=== PATIENT | male | born 1960 | race Hispanic/Latino ===

== ENCOUNTER 2018-08-24 09:10 | Day surgery (SDC) | payer OTHER ==
[2018-08-23 15:20] VITALS: BP 164/114
[2018-08-23 15:44] LABS: BASOPHILS % (AUTO) 0.8 % (0.0-5.0); EOSINOPHILS % (AUTO) 1.5 % (0.0-8.0); HEMATOCRIT 43.5 % (42-54); LYMPHOCYTES % (AUTO) 25.3 % (21.0-51.0); MEAN CORPUSCULAR HEMOGLOBIN 28.8 pg (27.0-33.0); MEAN CORPUSCULAR HGB CONC 34.2 g/dL (32.0-36.0); MEAN CORPUSCULAR VOLUME 84.1 fL (79-99); MONOCYTES % (AUTO) 5.5 % (3.0-13.0); NEUTROPHILS % (AUTO) 66.9 % (40.0-77.0); PLATELET COUNT (AUTO) 246 K/uL (130-400); RED BLOOD CELL COUNT(AUTO) 5.17 MIL/uL (4.50-6.20); WHITE BLOOD COUNT (AUTO) 6.6 K/uL (4.8-10.8)
[2018-08-23 16:02] LABS: CREATININE 0.9 mg/dL (0.5-1.5); CRP QUANTITATIVE 25.3 mg/L (0.00-9.0); POTASSIUM 3.9 mmol/L (3.5-5.1)
[2018-08-23 16:25] VITALS: BP 155/85
--- NOTE | 2018-08-23 16:25 | NUR ---
BP PT INSTRUCTED TO MONITOR BP AT HOME. IF ELEVATED AND/OR EXPERIENCING CARDIAC SYMPTOMS LIKE CHEST PAIN, SHORTNESS OF BREATH, LIGHTHEADEDNESS, BLURRY VISION, HEADACHES AND THE LIKE, GO TO EMERGENCY ROOM. VERBALIZED UNDERSTANDING. PT ASYMPTOMATIC OF THE PRESENT.
[2018-08-23 16:49] LABS: ERYTHROCYTE SEDIMENTATION RATE 22 MM/HR (0-20)
--- NOTE | 2018-08-23 18:18 | NUR ---
ABNORMAL LABS ABNORMAL LABS REPORTED TO DR. REBOLLAR CRP 25.30, ESR 22. NO FURTHER ORDERS GIVEN. ALSO NOTIFIED DR. REBOLLAR THAT PT TOOK HIS ASA 2 DAYS AGO. MAY PROCEED WITH PLANNED PROCEDURE.
[~2018-08-24] VITALS: Ht 185.4 cm; Wt 108.7 kg
[2018-08-24] VITALS (15 sets, daily range): BP systolic 81–169; BP diastolic 54–109
[~2018-08-24 09:10] MED LIST: AEC81 PO; ALEVE PO
[2018-08-24] MEDS ORDERED: CEFAZOLIN 3GM /D5W 100ML 100 ML IV PRN (10:00)
[2018-08-24] MEDS ORDERED: LACTATED RINGERS 1000ML 1,000 ML IV ONE (10:44)
[2018-08-24] MEDS ORDERED: VANCOMYCIN 1GM+NS 250ML 250 ML IV ONE (10:44)
[2018-08-24] MEDS ORDERED: LIDOCAINE PF 2% 5ML ABBOJECT ONE (11:27)
[2018-08-24] MEDS ORDERED: SUCCINYLCHOLINE 200MG/10ML SYR ONE ×2 (11:27→11:30)
[2018-08-24] MEDS ORDERED: ONDANSETRON HCL 4 MG/2 ML VIAL ONE ×2 (11:28→17:22)
[2018-08-24] MEDS ORDERED: MIDAZOLAM HCL 1 MG/ML 2ML VIAL ONE (11:28)
[2018-08-24] MEDS ORDERED: PROPOFOL 10 MG/ML 20ML VIAL IV ONE (11:28)
[2018-08-24] MEDS ORDERED: NEOSTIGMINE 5MG/5ML SYR IV ONE (11:28)
[2018-08-24] MEDS ORDERED: DEXAMETHASONE SOD PHOSPHATE 10MG/ML 1ML VIAL ONE (11:28)
[2018-08-24] MEDS ORDERED: GLYCOPYRROLATE 1 MG/5 ML SYRINGE ONE (11:28)
[2018-08-24] MEDS ORDERED: FENTANYL CITRATE PF 50 MCG/1 ML 2ML VIAL ONE ×3 (11:29→15:13)
[2018-08-24] MEDS ORDERED: ROCURONIUM 10MG/1ML SYR 10 MG/ML ML ONE (11:29)
[2018-08-24] MEDS ORDERED: VANCOMYCIN HCL 1 GM VIAL ONE ×2 (11:37→12:22)
--- NOTE | 2018-08-24 11:45 | NUR ---
Vancomycin stopped per Dr Lisa ,due to needs cultures prior to Vancomycin Addendum: 08/24/18 at 1457 by CINTIA CONWAY RN RN Amended: Links added.
[2018-08-24] MEDS ORDERED: LISI-613 PO (14:50)
[2018-08-24] MEDS ORDERED: GLUC-172 PO (14:51)
[2018-08-24] MEDS ORDERED: MEPERIDINE-PF 25 MG/ML SYG ONE ×2 (15:30→15:40)
[2018-08-24] MEDS ORDERED: TYL3 PO (15:40)
[2018-08-24] MEDS ORDERED: AMPI500C12 PO (15:40)
[2018-08-24] MEDS ORDERED: MORPHINE SULFATE 2 MG/ML 1ML SYG ONE (15:48)
[2018-08-24] MEDS ORDERED: KETOROLAC TROMETHAMINE 30MG/ML ONE (15:59)
[2018-08-24] MEDS ORDERED: ACETAMINOPHEN-CODEINE 300/30MG TAB ONE (16:37)
[2018-08-24 17:10] LABS: APPEARANCE BODY FLUID BLOODY (CLEAR); COLOR,BODY FLUID RED (LT YELLOW); SPECIMENTYPE,BODY FLUID ASPIRATE; TOTAL VOLUME,BODY FLUID 1.5 mL
[2018-08-24 17:11] LABS: BODY FLUID WBC 702 /cu. mm.
[2018-08-24 17:12] LABS: BODY FLUID RBC 30525 /cu. mm.
[2018-08-24] MEDS ORDERED: ACETAMINOPHEN-CODEINE 300/30MG TAB PO ONE (17:45)
[2018-08-24 17:47] LABS: BF LYMPHOCYTE 9 %
== END 2018-08-24 17:53 | disposition home or self-care (01) ==
LOC: DAH 09:10 → EDSEX 15:30 → DAH 17:53
PROVIDERS: ATTEND Orthopaedic Surgery
DX: M17.12 Unilateral primary osteoarthritis, left knee (principal); L40.9 Psoriasis, unspecified; I10 Essential (primary) hypertension; Z79.899 Other long term (current) drug therapy; Z98.890 Other specified postprocedural states; Z68.31 Body mass index [BMI] 31.0-31.9, adult
CPT/HCPCS: 29877; 36415; 80048; 85025; 85651; 86140; 87070; 87205; 89051; A4606; A4649 ×2; A4930; A6223; J0330 ×2; J1100; J1885; J2001; J2175 ×2; J2250; J2405 ×2; J2704; J2710; J3010 ×3; J3370 ×3; J3490; J7120

== ENCOUNTER 2018-11-23 10:30 | Inpatient (IN) | payer OTHER ==
[~2018-11-23] VITALS: Ht 185.4 cm; Wt 108.8 kg
[~2018-11-23 10:30] MED LIST changes: +AMPI500C12 PO; +GLUC-172 PO; +LISI-613 PO; +TYL3 PO
[2018-11-26] VITALS (28 sets, daily range): BP systolic 124–188; BP diastolic 59–114
[2018-11-26 11:30] LABS: APPEARANCE,URINE Clear (CLEAR); BILIRUBIN,URINE Negative (NEGATIVE); COLOR,URINE Dark Yellow (YELLOW); GLUCOSE, URINE (UA) Negative (NEGATIVE); KETONES,URINE Trace mg/dL (NEGATIVE); LEUKOCYTE ESTERASE ,URINE Trace (NEGATIVE); NITRATE,URINE Negative (NEGATIVE); OCCULT BLOOD,URINE Small (NEGATIVE); PH,URINE 6.5 (5.0-8.0); PROTEIN,URINE Trace mg/dL (NEGATIVE)
[2018-11-26 11:41] LABS: INR 0.9 (0.85-1.15); PROTHROMBIN TIME 9.5 SEC (9.6-11.6)
[2018-11-26 11:46] LABS: BACTERIA,URINE Few /HPF (None Seen); SQUAMOUS EPITHELIAL CELL,UR None Seen /HPF (0-2); WBC,URINE 0-1 /HPF (0-1)
[2018-11-26] MEDS ORDERED: CEFAZOLIN SODIUM 1 GM VIAL ONE ×2 (11:54→14:24)
[2018-11-26] MEDS ORDERED: TRANEXAMIC ACID 1000MG/10ML IV ONE ×2 (11:54→16:29)
[2018-11-26] MEDS: CEFAZOLIN SODIUM 1 GM VIAL IVP SCH ×3 (12:30→20:28)
[2018-11-26] MEDS ORDERED: LACTATED RINGERS 1000ML 1,000 ML IV ONE (12:36)
--- NOTE | 2018-11-26 12:45 | NUR ---
CONSULT: NOTIFIED [facility] OPERATOR OF PATIENTS IRREGUAR HEART RATE OF 46 - 52. NO CARDIAC CLEARANCE IN CHART. ORDERS GIVEN.
--- NOTE | 2018-11-26 12:52 | NUR ---
POTENTIAL FOR INFECTION: SHAVED LEFT KNEE / LEG PER ELIZABETH CORTES, FOLLOWED BY WIPING WITH YUE: 2% CHLORHEXIDINE GLUCONATE CLOTH PATIENTS PRE-OP SKIN PREP.
[2018-11-26] MEDS ORDERED: LIDOCAINE PF 2% 5ML ABBOJECT ONE (13:07)
[2018-11-26] MEDS ORDERED: MIDAZOLAM HCL 1 MG/ML 2ML VIAL ONE (13:08)
[2018-11-26] MEDS ORDERED: ROCURONIUM 10MG/1ML SYR 10 MG/ML ML ONE ×2 (13:08→14:14)
[2018-11-26] MEDS ORDERED: PROPOFOL 10 MG/ML 20ML VIAL IV ONE (13:08)
[2018-11-26] MEDS ORDERED: FENTANYL CITRATE PF 50 MCG/1 ML 2ML VIAL ONE ×3 (13:17→14:36)
[2018-11-26] MEDS ORDERED: VANCOMYCIN HCL 1 GM VIAL ONE (14:24)
[2018-11-26] MEDS ORDERED: CEFAZOLIN SODIUM 1 GM VIAL IRRIG ONE (14:30)
[2018-11-26] MEDS ORDERED: ONDANSETRON HCL 4 MG/2 ML VIAL ONE ×2 (14:55→17:07)
[2018-11-26] MEDS ORDERED: DEXAMETHASONE SOD PHOSPHATE 10MG/ML 1ML VIAL ONE (14:55)
[2018-11-26] MEDS ORDERED: POTASSIUM CHLORIDE 20 MEQ ERTAB PO PRN (15:45)
[2018-11-26] MEDS ORDERED: TRAMADOL HCL 50 MG TABLET PO PRN (15:45)
[2018-11-26] MEDS: ACETAMINOPHEN EXTRA STRENGTH 500 MG TABLET PO SCH ×2 (15:45→23:35)
[2018-11-26] MEDS ORDERED: FERROUS FUMARATE 324 MG TABLET PO PRN (15:45)
[2018-11-26] MEDS ORDERED: DiphenhydrAMINE HCL 50 MG/ML VIAL IVP PRN (15:45)
[2018-11-26] MEDS ORDERED: KETOROLAC TROMETHAMINE 15MG/ML IV PRN (15:45)
[2018-11-26] MEDS ORDERED: ONDANSETRON HCL 4 MG/2 ML VIAL IVP PRN (15:45)
[2018-11-26] MEDS ORDERED: POTASSIUM CHLORIDE 10% ELIXIR 20 MEQ/15 ML UDCUP PO PRN (15:45)
[2018-11-26] MEDS ORDERED: OXYCODONE HCL 5 MG TAB PO PRN (15:45)
[2018-11-26] MEDS ORDERED: TEMAZEPAM 15 MG CAPSULE PO PRN (15:45)
[2018-11-26] MEDS ORDERED: POTASSIUM CHLORIDE 20MEQ/100ML 100 ML IV PRN (15:45)
[2018-11-26] MEDS ORDERED: LIDOCAINE HCL-MPF 1% 2ML VIAL IVP PRN (15:45)
[2018-11-26] MEDS ORDERED: ROPIVACAINE 0.5% 5MG/ML 30ML IJ ONE (15:51)
[2018-11-26] MEDS ORDERED: GLYCOPYRROLATE 1 MG/5 ML SYRINGE ONE (16:11)
[2018-11-26] MEDS ORDERED: NEOSTIGMINE 5MG/5ML SYR IV ONE (16:11)
[2018-11-26] MEDS ORDERED: MEPERIDINE-PF 25 MG/ML SYG ONE (16:33)
[2018-11-26] MEDS: MEPERIDINE-PF 25 MG/ML SYG ONE ×2 (16:49→17:10)
[2018-11-26] MEDS: SODIUM CHLORIDE 0.9% 1000ML 1,000 ML IV SCH (18:08)
[2018-11-26] MEDS: ASPIRIN 325 MG TABLET PO SCH (18:09)
[2018-11-26] MEDS: FAMOTIDINE 20MG TAB 20 MG TAB PO SCH (20:28)
[2018-11-26] MEDS: CELECOXIB 200 MG CAP PO SCH (20:28)
[2018-11-26] MEDS: PREGABALIN 25 MG CAP PO SCH (20:28)
[2018-11-27] MEDS: SODIUM CHLORIDE 0.9% 1000ML 1,000 ML IV SCH ×2 (01:44→08:58)
[2018-11-27 03:30] VITALS: BP 133/69
[2018-11-27 04:32] LABS: HEMATOCRIT 40.1 % (42-54); MEAN CORPUSCULAR HEMOGLOBIN 28.3 pg (27.0-33.0); MEAN CORPUSCULAR HGB CONC 33.8 g/dL (32.0-36.0); MEAN CORPUSCULAR VOLUME 83.6 fL (79-99); NUCLEATED RED BLOOD CELLS 0.1 % (0.0-0.19); PLATELET COUNT (AUTO) 245 K/uL (130-400); RED CELL DISTRIBUTION WIDTH 13.4 % (11.0-15.5); WHITE BLOOD COUNT (AUTO) 10.3 K/uL (4.8-10.8)
[2018-11-27 04:55] LABS: CREATININE 0.8 mg/dL (0.5-1.5); POTASSIUM 4.3 mmol/L (3.5-5.1)
[2018-11-27] MEDS: CEFAZOLIN SODIUM 1 GM VIAL IVP SCH (04:57)
[2018-11-27] MEDS: ACETAMINOPHEN EXTRA STRENGTH 500 MG TABLET PO SCH ×3 (07:16→23:45)
[2018-11-27 07:59] VITALS: BP 138/72
[2018-11-27] MEDS: OXYCODONE HCL 5 MG TAB PO PRN ×4 (08:51→21:43)
[2018-11-27] MEDS: PREGABALIN 25 MG CAP PO SCH ×2 (08:52→21:42)
[2018-11-27] MEDS: CALCIUM CARBONATE 500 MG TABLET PO PRN ×2 (08:53→21:45)
[2018-11-27] MEDS: FAMOTIDINE 20MG TAB 20 MG TAB PO SCH ×2 (08:53→21:42)
[2018-11-27] MEDS: POLYETHYLENE GLYCOL 3350 17 GM POWD.PACK PO SCH (08:53)
[2018-11-27] MEDS: TAMSULOSIN HCL 0.4 MG CAP.ER.24H PO SCH (08:53)
[2018-11-27] MEDS: ASPIRIN 325 MG TABLET PO SCH ×2 (08:53→16:50)
[2018-11-27] MEDS: CELECOXIB 200 MG CAP PO SCH ×2 (08:54→21:42)
[2018-11-27] MEDS: LISINOPRIL 20 MG TABLET PO SCH (08:57)
[2018-11-27 11:19] VITALS: BP 125/56
--- NOTE | 2018-11-27 16:00 | NUR ---
INITIAL AND REFERRAL MET W PATIENT - [employer], S/P [employer], EMPLOYED, INPD OF [employer]LS, NO DME, LIVES WITH CHRIS YOUNG WHO WILL PROVIDE TRANSPORT, [facility] FOR [facility], GETING COPIES OF INSURANCE CARE, FAXED TO [facility], REC'D ACCEPTANCE SAW PT IN [place] LATER- 1400 ASKED HIM ABOUT OUTPT REHAB, STR, STATED WOULD LIKE TO TRY, ORDER RECD FROM DR. REBOLLAR REFERRAL SENT, VERFIED THAT IT WAS REC'D. WILL F/UP IN AM. ASKED RE DME [employer]. WILL SEND TO [facility] EMERGENCY DEPARTMENT. WILL ASK THEM TO COMPLETE CMS FORM FIRST THING IN AM FOR MD TO SIGN. Addendum: 11/27/18 at 1733 by NIXON THIBODEAUX RN Amended: Links added.
[2018-11-27 16:28] VITALS: BP 123/81
[2018-11-27 19:30] VITALS: BP 139/85
[2018-11-27 22:58] VITALS: BP 107/49
[2018-11-28 03:54] VITALS: BP 126/78
[2018-11-28] MEDS: ACETAMINOPHEN EXTRA STRENGTH 500 MG TABLET PO SCH ×2 (05:12→15:41)
[2018-11-28 07:50] VITALS: BP 138/72
[2018-11-28] MEDS: TAMSULOSIN HCL 0.4 MG CAP.ER.24H PO SCH (08:02)
[2018-11-28] MEDS: PREGABALIN 25 MG CAP PO SCH (08:02)
[2018-11-28] MEDS: FAMOTIDINE 20MG TAB 20 MG TAB PO SCH (08:02)
[2018-11-28] MEDS: ASPIRIN 325 MG TABLET PO SCH (08:03)
[2018-11-28] MEDS: POLYETHYLENE GLYCOL 3350 17 GM POWD.PACK PO SCH (08:03)
[2018-11-28] MEDS: CELECOXIB 200 MG CAP PO SCH (08:03)
[2018-11-28] MEDS: OXYCODONE HCL 5 MG TAB PO PRN (08:05)
[2018-11-28] MEDS: LISINOPRIL 20 MG TABLET PO SCH (08:13)
[2018-11-28 11:03] VITALS: BP 116/65
[2018-11-28] MEDS ORDERED: HYDR-4457 PO (13:57)
[2018-11-28] MEDS ORDERED: ASPI-1012 PO (13:57)
--- NOTE | 2018-11-28 15:26 | NUR ---
DISCHARGE INSTRUCTIONS GIVEN AND EXPLAINED UTILIZING TEACH BACK METHOD. PT/FAMILY VERBALIZED UNDERSTANDING. DISCHARGE TO [facility]. REPORT GIVEN TO MISSY JOHNSON. CALL FOR ANY CONCERNS. [phone] REBOLLAR ON 12/17/18 @ 8:00 A.M. Call office for any concerns 07/11 at DIET: -Resume your previous home diet. MEDICATIONS: -Resume your previous home medications if any as instructed by staff. -Please take prescription medications as instructed. -If you need a prescription refill on your pain medications, please call office a few days before you take your last pain pill. WOUND CARE: -Nurse to remove dressing: DAILY DRESSING CHANGE -Continue daily dressing changes if needed after first removal. ACTIVITY: -Ambulate (walk) as tolerated with the use of crutches or walker until your able to walk independently. -Wear your AMINAH hose on operative leg upon awaking up until going to bed for the night. -When resting keep your leg elevated but avoid placing pillow(s) under your knees. PHYSICAL THERAPY: Follow Physical Therapist recommendations/instructions. -Gait training with walker and weight bearing as tolerated, advance to cane as per Nurse/Therapist discretion -Active/passive assisted flexion/extension exercises to operative knee(s) -Do quadriceps strengthening/hamstring strengthening exercises to operative knee(s) -Modalities as per Physical Therapist discretion Call 911 or go to emergency room if you have any chest pain/discomfort, shortness of breath/difficulty breathing or as needed.
--- NOTE | 2018-11-28 16:12 | NUR ---
FINAL DC PLAN EARLIER TODAY PT INFO SENT TO [facility] FOR OUTPT THERAPY, SPOKE TO ERNESTO, HAS BENEFITS , IN NETWORK, BUT WILL NOT BE ABLE TO START UNTIL NEXT WEEK RE: SCHEDULE? SPOKE TO DR. REBOLLAR, ORDER FOR [facility]GINALLY ORDERED, WILL SEE PT IN TWO WEEKS, AND REFER THEN TO [facility] . BETTIE HAYES RN PLAN IS FOR HOME POST 2ND PT SESSION. [facility] CERT FORM RECD, SIGNED BY REMY AND SENT TO [facility]. FOR DELIVERY TODAY. Addendum: 11/28/18 at 1618 by NIXON THIBODEAUX RN CM Amended: Links added.
[2018-11-29] MEDS ORDERED: BISACODYL 10 MG SUPP.RECT RC PRN (15:45)
== END 2018-11-28 17:26 | disposition home health service (06) | DRG 470 ==
LOC: DAHIP 11-26 10:18 → 4AH 11-26 16:14
PROVIDERS: ADMIT Orthopaedic Surgery; ATTEND Orthopaedic Surgery
PROC: 0SRD0J9 Replacement of Left Knee Joint with Synthetic Substitute, Cemented, Open Approach (ICD-10-PCS; principal; 2018-11-26 13:14)
DX: L40.50 Arthropathic psoriasis, unspecified (principal); M24.662 Ankylosis, left knee; I10 Essential (primary) hypertension; M17.12 Unilateral primary osteoarthritis, left knee; G89.29 Other chronic pain; Z87.891 Personal history of nicotine dependence; Z83.3 Family history of diabetes mellitus; Z80.9 Family history of malignant neoplasm, unspecified
CPT/HCPCS: 36415; 80048; 81001; 85027; 85610; 87070; 87076; 87205; 87641; 88304; 88311; 93005; 97039; G0378; J0690; J1100; J2001; J2175; J2250; J2405; J2704; J2710; J2795; J3010; J3370; J3490; J7120